=== PATIENT | male | born 1965 | race Caucasian/White ===

== ENCOUNTER 2018-06-21 16:45 | Inpatient (IN) | payer MEDICAID ==
[~2018-06-21] VITALS: Ht 188 cm; Wt 65.8 kg
--- NOTE | ~2018-06-21 | PN ---
PATIENT:LINDSAY JENKINS MEDICAL RECORD: [id number] LOCATION:[facility] ADMISSION DATE: 06/21/18 PROGRESS NOTE DATE OF SERVICE: 06/28/2018 SUBJECTIVE: This is a 52-year-old man who was admitted for possible fungal infection. The patient was treated with bronchodilators as well as antifungal medications. 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 There was no biopsy done. The patient was treated with significant improvement. The patient has, however, had increasing shortness of breath. This is a more frequent in cold weather as well as with dust and humidity. The patient was seen in the Emergency Room with severe shortness of breath, hypoxemia, which worsened on any activity such as walking. 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 The patient was seen as he had multiple minute circumscribed diffuse scattered in the lungs. There was no mass to the biopsy. The patient had a bronchoscopy with washing which was sent to the lab. So far, there is no organism noted. Potassium hydroxide smear was negative for fungus. Cytology is pending, but doubt whether this will show anything. 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 He also smoked until about 3 years ago, smoked about one to one and a half packs of cigarettes a day, started at age 17. His father also smoked heavily, but later on quit. There is no fever or chills. The patient's breathing has somewhat improved slightly. PHYSICAL EXAMINATION: GENERAL: Reveals a well-developed, well-nourished male, who is in no acute distress. VITAL SIGNS: Temperature 98.3, heart rate of 95, respiratory rate of 19, blood pressure 116/82. SHEENT: Unremarkable. HEENT: Pupils are equal and reactive. Nares are normal. Oral cavity is also normal. CHEST: Showed occasional wheeze. There are no crackles. CARDIAC: Shows no jugular venous distention. No murmur, or gallop. ABDOMEN: Benign. EXTREMITIES: No clubbing, cyanosis or edema. LABORATORY DATA: White count of 11.3, hemoglobin 12.4, platelet count 245. Chemistry is unremarkable. Creatinine is 0.8. MICROBIOLOGY: Gram stain is negative. Urine culture is also no growth. There is normal loree. ASSESSMENT AND PLAN: 1. 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 The patient was well advised not to return to his usual work with mobile homes. He will need to avoid the weather changes such as cold weather. Also, dust and cigarette smoke environments. He will need long-term treatment with bronchodilators as well as inhaled steroids or systemic steroids. 2. Doubt fungal infection in this patient at this time. The patient has been PROGRESS NOTE [id number] LINDSAY JENKINS treated fully with anti-TB medications in the past. There is only remote chance of reactivation. 3. Chronic obstructive pulmonary disease from smoking, with dust as well as second hand smoking from father. He also has a friend who smokes. PLAN: 1. We discontinued antifungals. 2. Taper Solu-Medrol and switch to oral prednisone. The patient will need a home nebulizer. Also, need inhaled steroids. 3. The patient can be followed in the pulmonary clinic. TIME SPENT: 40 minutes. Discussed with dialysis social worker about transportation and discharge planning. TRANSINT:[id number] Voice Confirmation ID: [id number] DOCUMENT ID: [id number] BOBBY THRASHER at 1019 CC: [id number] DICTATION DATE: 06/28/181815 DOOR PATCHER: 06/29/18 0058 ADM IN [facility] [address] [place] [address]
--- NOTE | ~2018-06-21 | PN ---
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 He has also had atypical mycobacterium. The patient presented to the Emergency Room with wheezing, shortness of breath especially on exertion with sputum production. The patient had a CT scan that showed cavitary lesion seen bilaterally in the lung bases and defects representing small aspergilloma. There is upper lobe confluent consolidation. The patient has been treated with antibiotics, bronchodilators and antifungal. A chest x-ray shows scarring patchy consolidations in bilateral lung apices, confluent consolidation in the left upper apex. This is suggestive of chronic infection. We will have to obtain fungal antigens as well as aspergillus IgG and then perhaps do bronchoscopy with washing, as there is no large mass to biopsy, that is probably scheduled for . PHYSICAL EXAMINATION: GENERAL: Reveals a middle-aged man who appears to be in no acute distress at rest. VITAL SIGNS: Temperature 98.8, heart rate 109, respiratory rate of 18, blood pressure 125/75. SHEENT: The patient is normocephalic. Pupils are equal and reactive. NECK: Supple. There is no adenopathy. CHEST: Shows some mild wheezes with cough. HEART: Shows no jugular venous distention, murmur or gallops. ABDOMEN: Benign without any tenderness. EXTREMITIES: Without clubbing, cyanosis or edema. LABORATORY DATA: Chemistry is remarkable for creatinine of 0.9, sodium 139. CBC showed white count of 20.1, hemoglobin 12.5 and platelet count is 304,000. ASSESSMENT: 1. Aspergillosis with aspergilloma. 2. Possible pneumonia. 3. Acute asthmatic bronchitis. The patient has been on antibiotics without any significant improvement. PLAN: 1. We will obtain aspergillus IgG and fungal antigen and antibodies. 2. We will plan for bronchoscopy for morning if the patient is not improved. 3. Continue antibiotics and continue steroid. TRANSINT:[id number] Voice Confirmation ID: [id number] DOCUMENT ID: [id number] PROGRESS NOTE [id number] LINDSAY JENKINS BOBBY THRASHER at 6182 CC: [id number] DICTATION DATE: 06/25/182102 PUBLIC WEIGHER: 06/26/18 0611 ADM IN [facility] [address] [facility]
--- NOTE | ~2018-06-21 | EC ---
PATIENT:LINDSAY JENKINS DATE OF SERVICE: 06/21/18 SEX: M MEDICAL RECORD: [id number] DATE OF : 63 LOCATION:D[facility] AGE OF PATIENT: 52 ADMISSION DATE: 06/21/18 REFERRING PHYSICIAN: INTERPRETING PHYSICIAN: SHIMA ARAUJO MD ECHOCARDIOGRAM REPORT ECHO CHARGES 4 ECHO COMPLETE Date: 06/23 CLINICAL DIAGNOSIS: CHF ECHOCARDIOGRAPHIC MEASUREMENTS (adult normal given) AC root (d.<3.7cm) 3.9 cm LV Septum d (<1.2 cm> 1.2 cm Valve Excursion 1.9 cm LV Septum (systole) 1.7 cm Left Atria (s.<4.0cm> 3.1 cm LVPW d(<1.2cm) 1.3 cm RV (d.<2.3cm) 4.2 cm LVPW (sytole) 1.8 cm LV diastole(<5.6CM) 3.9 cm MV E-F(>70mm/sec) cm LV systole 2.1 cm LVOT Diameter 1.9 cm MV exc.(>10mm) 1.9 cm Est.ejection fraction (50-75%) % DOPPLER: LVIT cm/sec A 56.0 cm/sec E 72.0 cm/sec LA cm/sec RVSP 44 mmHg LVOT 92 cm/sec AOP1/2T m/s Asc. Ao 132 cm/sec RVOT 75 cm/sec RA cm/sec PA 102 cm/sec AV Gradient Peak 6.95 mmHg AV Mean 4.0 mmHg AV Area 1.9 cm MV Gradient Peak 3.66 mmHg MV Mean 1.63 mmHg MV Area cm COMMENTS: Retail Coverage Merchandiser Lead: Hamida NINO Manager Oncology: 1 Dr. Araujo TAPE# PACS Pericardial Effusion N DATE OF SERVICE: 06/23/2018 PROCEDURE: Echocardiogram. FINDINGS: 1. Left ventricular chamber size is within normal limits. Left ventricular systolic function is normal. Overall ejection fraction estimated at 55%. 2. Left atrium, right atrium, and right ventricle chamber sizes are within normal limits. 3. Valvular structures: Aortic valve does have an echogenic thickening on the ECHOCARDIOGRAM REPORT [id number] LINDSAY JENKINS anterior leaflet. Cannot rule out the possibility of endocarditis. As well, the mitral valve has an echogenic process on it as well in the anterior leaflet. This cannot be ruled out as endocarditis either. 4. Doppler interrogation reveals no aortic insufficiency; however, there is mild to moderate mitral regurgitation, mild to moderate tricuspid regurgitation. Pulmonary systolic pressure is estimated at 44 mmHg. 5. No evidence of pericardial effusion or left ventricular thrombus. TRANSINT:[id number] Voice Confirmation ID: [id number] DOCUMENT ID: [id number] SHIMA ARAUJO MD at 1642 CC: [id number] DICTATION DATE: 06/24/18 1228 ACCOUNTANT BOOKKEEPER: 06/24/18 1330 ADM IN [place] [address] [place] [address]
--- NOTE | ~2018-06-21 | PN ---
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 The patient had had history of mycobacterium TB, has been treated with up to 4 drugs. He was also thought to have a fungus ball that was not biopsied, but resolved by itself. The patient has had severe shortness of breath, has quit his job because of inability to work with moderate height and it takes about 8 hours instead of 20 minutes for someone with the same job. He was admitted because of severe shortness of breath especially on exertion. He has some mild coughing with sputum production. There was no chest pain. The patient's serology so far has shown no fungus. He had a bronchoscopy and ANTONETTE smears were negative. There was a description of [address] scan that to me was not compatible with aspergilloma or aspergillosis. The patient had some mild improvement in breathing. There is no fever or chills. PHYSICAL EXAMINATION: GENERAL: Reveals a middle-aged gentleman who is in no acute distress. VITAL SIGNS: Temperature 98.1, heart rate of 97, respiratory rate of 18, blood pressure 114/77, saturation 97%. SHEENT: Unremarkable. There is no nasal redness or obstruction. Mouth is clear. Chest exam showed occasional cough, cough with wheeze, otherwise clear. There are no crackles. CARDIAC: Shows no jugular venous distention, murmur or gallops. ABDOMEN: Benign. EXTREMITIES: Shows no clubbing, cyanosis or edema. LABORATORY DATA: Showed white count 17.9, hemoglobin 12.6, platelet count is 256,000. Chemistry is normal. Potassium 3.6. Chest x-ray is compatible with chronic obstructive pulmonary disease, atypical pleural thickening is noted. ASSESSMENT: 1. Acute exacerbation of chronic asthma secondary to formaldehyde exposure toxicity. 2. Chronic obstructive pulmonary disease from smoking and formaldehyde exposure. 3. No evidence of a fungal infection. 4. Leukocytosis, probably secondary to steroids. PLAN: 1. Continue isolation. 2. Continue prednisone. 3. Continue on bronchodilators. 4. Deep venous thrombosis prophylaxis. 5. The patient may be discharged on Sunday as per PCP. He will need to follow up with pulmonary clinic if possible. TRANSINT:[id number] Voice Confirmation ID: [id number] DOCUMENT ID: [id number] PROGRESS NOTE [id number] LINDSAY JENKINS AUGUSTINE K at 0942 CC: [id number] DICTATION DATE: 06/29/18 1358 EMBEDDED FIRMWARE ENGINEER: 06/29/18 1625 ADM IN [place] [address] [place] [address]
--- NOTE | ~2018-06-21 | PN ---
PATIENT:LINDSAY JENKINS MEDICAL RECORD: [id number] LOCATION:D.[facility] ADMISSION DATE: 06/21/18 PROGRESS NOTE DATE OF SERVICE: 06/27/2018 SUBJECTIVE: This is a 52-year-old male who was admitted for increasing shortness of breath and coughing with wheezes. The patient's CT scan and chest x-ray showed multiple small lesions diffusely, felt to be aspergilloma. The patient has had a diagnosis of aspergilloma in the past without biopsy. He has been on antibiotics for antifungal and continued to have symptoms of cough and shortness of breath. Bronchoscopy was done this morning. The airways were normal. There is some mild redness. There is no edema. There were no lesions. Specimens were sent to the lab for cultures, chemistry and cytology. The patient has had an uneventful night. No fever or chills. No nausea or vomiting. PHYSICAL EXAMINATION: GENERAL: Reveals, middle-aged man who is in no acute distress, mildly sedated after bronchoscopy. VITAL SIGNS: Temperature 98.4, heart rate of 101, respiratory rate of 16, blood pressure 120/61. SHEENT: Unremarkable. NECK: Supple, no adenopathy. Trachea is midline. No masses. CHEST: Shows some mild crackles, otherwise good air flow bilaterally. There is no chest wall tenderness. HEART: Shows no jugular venous distention, murmur or gallop. ABDOMEN: Benign. EXTREMITIES: Show no clubbing, cyanosis or edema. LABORATORY DATA: White count of 17.7, hemoglobin 11.9, platelet count is 266. Chemistry is essentially normal. Chest x-ray is pending. ASSESSMENT: Acute asthmatic bronchitis, has possible fungal infection. The patient's fungal smear has been negative. Bronchoscopy results are pending. History of dust chemical exposure in the past. This may explain the patient's symptoms. PLAN: 1. Await bronchoscopy results. 2. Continue antibiotics. 3. Continue bronchodilators. 4. Deep venous thrombosis prophylaxis. TRANSINT:[id number] Voice Confirmation ID: [id number] DOCUMENT ID: [id number] PROGRESS NOTE [id number] LINDSAY JENKINS BOBBY THRASHER at 1238 CC: [id number] DICTATION DATE: 06/27/18 1045 AUTOMATION QA LEAD: 06/27/18 1200 ADM IN [address] [place] [address]
--- NOTE | ~2018-06-21 | PRO ---
PATIENT:LINDSAY JENKINS MEDICAL RECORD: [id number] : 63 LOCATION:D[facility] ADMISSION DATE: 06/21/18 PROCEDURE PERFORMED BY: BOBBY THRASHER DATE OF PROCEDURE: 06/27/2018 NAME OF PROCEDURE: 1. Flexible fiberoptic bronchoscopy. 2. Bronchial washings. No biopsies done. No brush was done. PREMEDICATIONS: 1. Versed 2 mg IV push. 2. Fentanyl 50 mcg IV push. 3. Pure ventilations include DuoNeb and 2% Xylocaine. INDICATION: Bilateral pneumonia, rule out aspergillomas. POSTOPERATIVE DIAGNOSES: Bilateral pneumonia, rule out aspergillomas. DESCRIPTION OF PROCEDURE: The patient was premedicated at bedside. Demerol 50 mg was given, Versed 2 mg and Ativan 50 mg. The patient was sedated and a flexible bronchoscopy was passed through the nose. The larynx was examined and the 2% Xylocaine instilled in the larynx. Trachea was entered. The right airway was examined including orifices. There is mild to moderate secretions. Saline was instilled into the distal airways and collected. The left airways was also examined including orifices. Saline was instilled into the distal airways and aspirated and collected. These were combined. The patient tolerated the procedure well and the bronchoscope was withdrawn. FINDINGS: Include normal true vocal cords, stephany and trachea. There was no endobronchial lesion. There was no mucosal edema. There was some mild redness bilaterally in the airways. Bronchoscopy washings were sent to lab for culture, cytology, and chemistries. TRANSINT:[id number] Voice Confirmation ID: [id number] DOCUMENT ID: [id number] BOBBY THRASHER at 1238 CC: [id number] DICTATION DATE: 06/27/18 1038 GOLF BALL COVER TREATER: 06/27/18 1155 ADM IN [facility] [address] [place] [address]
--- NOTE | ~2018-06-21 | PN ---
PATIENT:LINDSAY JENKINS MEDICAL RECORD: [id number] LOCATION:D.[facility] ADMISSION DATE: 06/21/18 PROGRESS NOTE DATE OF SERVICE: 06/24/2018 A 52-year-old man who has had a history of aspergillosis as well as an atypical mycobacteria in the past. The patient presented to the Emergency Room with increasing shortness of breath, coughing but still nonproductive. The patient has been severely weak. He also has some weight loss. The patient states that he looks better but still very short of breath especially on exertion and walking to the bathroom and back. He has had no fever or chills. The patient on the CT scan as mentioned there was a finding suggestive of a history of aspergillosis and cavitary lesions bilaterally and filling defects, but this can be small aspergillomas. Presence of bilateral nodular densities throughout the upper lobe but no confluent consolidation in the left apex. There is moderate coronary artery disease. The patient denies any fever or chills. PHYSICAL EXAMINATION: GENERAL: Physical exam reveals a middle-aged man who is in no acute distress. VITAL SIGNS: Temperature 99, heart rate 105, respiratory rate 20, blood pressure 118/80. SHEENT: Unremarkable. NECK: Supple. CHEST: Coarse crackles on coughing. There are no wheezes. HEART: Exam shows no jugular venous distention, murmur or gallops. ABDOMEN: Benign. No tenderness. There is no mass. There is no distention. EXTREMITIES: No clubbing, cyanosis or edema. LABORATORY DATA: White count of 8.2, hemoglobin 13.1, and platelet count is 338,000. Chemistry is remarkable for a creatinine of 0.9, sodium is 143. IgG, IgA, and IgE are Pending. Serology is also pending. ASSESSMENT: 1. Diffuse aspergillosis with multiple small aspergillomas. 2. Possible underlying pneumonia. 3. History of atypical Mycobacterium tuberculosis. 4. Acute exacerbation of chronic obstructive pulmonary disease. 5. Acute hypoxemic respiratory failure. 5. Hypertension. 6. Leukocytosis, improving, this would suggest underlying pneumonia, on antibiotics. PLAN: 1. Continue antibiotics. 2. Continue bronchodilators. 3. Continue systemic steroids. 4. Continue voriconazole antifungal. 5. Lovenox for DVT prophylaxis. TRANSINT:[id number] Voice Confirmation ID: [id number] DOCUMENT ID: [id number] PROGRESS NOTE [id number] LINDSAY JENKINS AUGUSTINE K at 1538 CC: [id number] DICTATION DATE: 06/24/182129 MILLER APPRENTICE: 06/25/18 0344 ADM IN [facility] [address] [place] [id number]
--- NOTE | ~2018-06-21 | PN ---
PATIENT:LINDSAY JENKINS MEDICAL RECORD: [id number] LOCATION:D.[facility] ADMISSION DATE: 06/21/18 PROGRESS NOTE DATE OF SERVICE: 06/26/2018 SUBJECTIVE: This is a middle-aged man who is in no acute distress. The patient presented to the Emergency Room with severe shortness of breath, wheezes, and severe exertional dyspnea. He has had a history of atypical mycobacteria as well as possible Aspergillosis. No biopsies were done. The patient's chest x-ray and CT scan showed multiple small nodules that was felt to be aspergilloma. The patient was admitted and has been on antifungal medications as well as antibacterial medication. He has also had systemic steroid. The patient remains the same. Sputum cultures with blood cultures have been negative. The patient denies any fever or chills. PHYSICAL EXAMINATION: GENERAL: Reveals a well-developed, well-nourished man, who is in no acute distress. VITAL SIGNS: Temperature 97.9, heart rate of 109, respiratory rate of 18, blood pressure 117/78. SHEENT: Unremarkable. HEENT: Normocephalic. Pupils are equal and reactive. NECK: Supple. There is no adenopathy. There is no thyromegaly. Trachea is midline. CHEST: Showed moderate wheeze, especially on coughing or respiratory inspiration. No chest wall tenderness. There is no accessory muscle use. CARDIAC: Shows no jugular venous distention, murmur or gallops. ABDOMEN: Benign. There is no tenderness. There are no masses. There is no distention. EXTREMITIES: Shows no clubbing, cyanosis or edema. LABORATORY DATA: CBC showed white count of 10.6, hemoglobin 12.2 and platelet count 261,000. Chemistry essentially normal. Immunology showed positive IgA or high IgA. Serology is pending. Mycobacterial smear is negative. Fungal stain, no fungus observed. ASSESSMENT: 1. Presumed aspergilloma infection. No smear showing fungus or mycobacteria. The patient will need bronchoscopy in the morning for diagnosis of sputum as well as a possible biopsy if there is something observed in endobronchial. 2. Acute asthmatic bronchitis. This is not improving possibly because of the distal bronchial obstruction. No diagnosis is made. The patient may need to have an open lung biopsy. PLAN: 1. Bronchoscopy in the morning for washing cultures and cytology. 2. Continue current treatment. 3. N.p.o. post-midnight. I have discussed with the patient the procedure and also need for n.p.o. at midnight. All questions were answered. TRANSINT:[id number] Voice Confirmation ID: [id number] DOCUMENT ID: [id number] PROGRESS NOTE [id number] LINDSAY JENKINS AUGUSTINE K at 1046 CC: [id number] DICTATION DATE: 06/26/181916 WAREHOUSE HAND: 06/27/18 0000 ADM IN [facility] [address] [place] [id number]
--- NOTE | ~2018-06-21 | PN ---
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 For the last few years, he has been having trouble breathing, what takes him about 2 hours, takes him about 8 hours to do and has had severe shortness of breath especially on exertion. He has had mycobacterial tuberculosis and has been treated with about 3-4 antibiotics per year. It was also told that he has some aspergilloma but no biopsies were done. The patient had bronchoscopy of the lungs but no edema. Cytology is pending. The patient had a CT scan that showed multiple scattered minute cavitary lesions all felt to be aspergilloma. The patient was treated with antifungal medications as well as antibacterial medications, Solu-Medrol as well as bronchodilators. He has had severe shortness of breath especially with exertion to the bathroom. Isolation was discontinued. The patient has been unable to walk in the halls, although at some point he sits down to get his breath. Overall, he is doing better. PHYSICAL EXAMINATION: GENERAL: Physical exam reveals a middle-aged man, appears in no acute distress. VITAL SIGNS: Temperature of 97.9, heart rate of 101, respiratory rate of 18, blood pressure 123/66, pulse ox 97%. SHEENT: Unremarkable. NECK: Supple. There is neuropathy. Trachea is midline. There is no thyromegaly. LUNGS: Clear. There is no wheeze on coughing. HEART: Exam shows no jugular venous distention, no murmur or gallop. ABDOMEN: Benign. EXTREMITIES: There is no clubbing, cyanosis or edema. No abdominal tenderness. LABORATORY DATA: Lab exam showed CBC, white count 19.4, hemoglobin 13, platelet count is 265. Chemistry is remarkable for potassium 3.9, sodium 132, bicarbonate is 28, and creatinine 0.7. Chest x-ray from yesterday showed scarring and retraction in the upper lobes bilaterally. There is hyperinflation of the lungs. ASSESSMENT: 1. Chronic asthma with status asthmaticus. 2. History of mycobacterial tuberculosis, treated. 3. Formaldehyde toxicity with damage to the lungs. PLAN: 1. Continue bronchodilators. Will probably need a nebulizer at home as well as aerosolized steroids and bronchodilators. We will need to follow up in pulmonary clinic for PFTs and additional medications. 2. Continue DVT prophylaxis. 3. Physical therapy for ambulation. PROGRESS NOTE [id number] LINDSAY JENKINS 4. Discharge planning for consultation. TRANSINT:[id number] Voice Confirmation ID: [id number] DOCUMENT ID: [id number] BOBBY THRASHER CC: [id number] DICTATION DATE: 06/30/181714 LOGGING CREW FOREMAN: 07/01/18 0048 ADM IN [facility] [address] [place] [address]
[2018-06-21] MEDS ORDERED: VFEND200 MG PO (23:07)
[2018-06-21] MEDS ORDERED: MULTIPLE VITAMI1 TA1 PO (23:08)
[2018-06-21 23:09] VITALS: BP 133/91; BMI 18.6
[2018-06-21 23:59] LABS: BASOPHILS 0.3 % (0-2); HEMATOCRIT 38.2 % (42.0-54.0); HEMOGLOBIN 12.8 g/dL (13.5-17.5); IMMATURE GRANULOCYTES 0.2 % (0-5); LYMPHOCYTES 18.2 % (15-50); MCH 30.5 pg (26.0-34.0); MCHC 33.5 g/dL (31.0-37.0); MEAN PLATELET VOLUME 9.2 fL (7.4-10.4); NEUTROPHILS 68.3 % (40-80); PLATELET COUNT 314 10x3/uL (130-400); RDW 17.8 % (11.5-14.5); WBC 9.6 10x3/uL (4.8-10.8)
[2018-06-22 00:01] VITALS: BP 133/91
[2018-06-22 00:12] LABS: ALBUMIN 2.4 g/dL (3.4-5.0); ALKALINE PHOSPHATASE 159 U/L (46-116); ALT (SGPT) 6 U/L (10-68); BILIRUBIN - TOTAL 0.32 mg/dL (0.2-1.3); CALC OSMOLALITY 272 mosm/kg (275-300); CALCIUM 8.8 mg/dL (8.5-10.1); CHLORIDE - SERUM 102 mmol/L (98-107); CREATININE - SERUM 0.9 mg/dL (0.6-1.3); GLUCOSE 100 mg/dL (74-106); POTASSIUM - SERUM 4.2 mmol/L (3.5-5.1); PROTEIN - SERUM 7.3 g/dL (6.4-8.2); SODIUM 138 mmol/L (136-145); UREA NITROGEN 5 mg/dL (7-18); eGFR NON AFRICAN AMERICAN > 90 mL/min (90-120)
[2018-06-22 04:16] VITALS: BP 135/88
[2018-06-22 10:32] VITALS: BP 107/72
[2018-06-22 14:33] VITALS: BP 178/89
[2018-06-22 15:37] LABS: BASOPHILS 0.2 % (0-2); EOSINOPHILS 1.8 % (0-7); HEMATOCRIT 43.6 % (42.0-54.0); HEMOGLOBIN 14.9 g/dL (13.5-17.5); IMMATURE GRANULOCYTES 0.2 % (0-5); LYMPHOCYTES 18.2 % (15-50); MCH 30.6 pg (26.0-34.0); MCHC 34.2 g/dL (31.0-37.0); MCV 89.5 fL (80.0-100.0); MEAN PLATELET VOLUME 9.6 fL (7.4-10.4); MONOCYTES 10.1 % (2-11); NEUTROPHILS 69.5 % (40-80); PLATELET COUNT 383 10x3/uL (130-400); RBC 4.87 10x6/uL (4.20-6.10); RDW 17.6 % (11.5-14.5); WBC 12.9 10x3/uL (4.8-10.8)
[2018-06-22 15:47] LABS: APTT 29.5 SECONDS (22.8-39.4); INR 1.08 (0.85-1.17); PROTIME 13.6 SECONDS (11.6-15.0)
[2018-06-22 15:50] LABS: % SATURATION 19 % (15-55); IRON 44 ug/dl (35-150); TOTAL IRON BIND CAPACITY 226 ug/dl (260-445); UNSAT IRON BIND CAPACITY 182 ug/dl (150-375)
[2018-06-22 16:09] LABS: CALC OSMOLALITY 273 mosm/kg (275-300); CALCIUM 9.1 mg/dL (8.5-10.1); CARBON DIOXIDE 27.9 mmol/L (21.0-32.0); CHLORIDE - SERUM 102 mmol/L (98-107); FERRITIN 83 ng/mL (3-244); GLUCOSE 98 mg/dL (74-106); MAGNESIUM - SERUM 1.8 mg/dL (1.8-2.4); POTASSIUM - SERUM 4.8 mmol/L (3.5-5.1); PRO BNP 984 pg/mL (0-125); SODIUM 138 mmol/L (136-145); UREA NITROGEN 6 mg/dL (7-18); eGFR NON AFRICAN AMERICAN 83 mL/min (90-120)
[2018-06-22 19:11] VITALS: BP 124/84
[2018-06-22 20:16] VITALS: BP 102/83
[2018-06-22 22:39] LABS: APPEARANCE CLEAR (CLEAR); COLOR YELLOW (YELLOW); NITRITE NEGATIVE (NEGATIVE); PROTEIN NEGATIVE (NEGATIVE)
[2018-06-22 22:40] LABS: BILIRUBIN NEGATIVE (NEGATIVE); GLUCOSE NEGATIVE (NEGATIVE); KETONE NEGATIVE (NEGATIVE); UROBILINOGEN NORMAL (NORMAL)
[2018-06-23 04:30] VITALS: BP 96/77
[2018-06-23 06:38] LABS: BASOPHILS 0.2 % (0-2); EOSINOPHILS 1.4 % (0-7); HEMATOCRIT 42.3 % (42.0-54.0); HEMOGLOBIN 14.4 g/dL (13.5-17.5); IMMATURE GRANULOCYTES 0.2 % (0-5); LYMPHOCYTES 14.8 % (15-50); MCH 30.5 pg (26.0-34.0); MCV 89.6 fL (80.0-100.0); MEAN PLATELET VOLUME 9.6 fL (7.4-10.4); MONOCYTES 8.7 % (2-11); NEUTROPHILS 74.7 % (40-80); PLATELET COUNT 357 10x3/uL (130-400); RBC 4.72 10x6/uL (4.20-6.10); RDW 17.4 % (11.5-14.5); WBC 10.9 10x3/uL (4.8-10.8)
[2018-06-23 07:31] LABS: CALC OSMOLALITY 271 mosm/kg (275-300); CALCIUM 8.8 mg/dL (8.5-10.1); CARBON DIOXIDE 26.7 mmol/L (21.0-32.0); CHLORIDE - SERUM 101 mmol/L (98-107); CREATININE - SERUM 0.9 mg/dL (0.6-1.3); GLUCOSE 98 mg/dL (74-106); POTASSIUM - SERUM 4.5 mmol/L (3.5-5.1); SODIUM 137 mmol/L (136-145); UREA NITROGEN 6 mg/dL (7-18); eGFR NON AFRICAN AMERICAN > 90 mL/min (90-120)
[2018-06-23 09:37] VITALS: BP 105/69
[2018-06-23 14:35] VITALS: BP 112/74
[2018-06-23 16:50] VITALS: BP 114/74
[2018-06-23 20:35] VITALS: BP 112/81
[2018-06-24 01:31] VITALS: BP 124/84
[2018-06-24 04:18] VITALS: BP 114/75
[2018-06-24 06:58] LABS: C-REACTIVE PROTEIN 2.3 mg/dL (0.0-0.9); CALC OSMOLALITY 283 mosm/kg (275-300); CALCIUM 8.5 mg/dL (8.5-10.1); CARBON DIOXIDE 23.1 mmol/L (21.0-32.0); CHLORIDE - SERUM 105 mmol/L (98-107); CREATININE - SERUM 0.9 mg/dL (0.6-1.3); GLUCOSE 141 mg/dL (74-106); POTASSIUM - SERUM 4.2 mmol/L (3.5-5.1); SODIUM 143 mmol/L (136-145); UREA NITROGEN 5 mg/dL (7-18); eGFR NON AFRICAN AMERICAN > 90 mL/min (90-120)
[2018-06-24 07:14] LABS: BASOPHILS 0 % (0-2); EOSINOPHILS 0 % (0-7); HEMATOCRIT 39.1 % (42.0-54.0); HEMOGLOBIN 13.1 g/dL (13.5-17.5); IMMATURE GRANULOCYTES 0.2 % (0-5); LYMPHOCYTES 6.9 % (15-50); MCHC 33.5 g/dL (31.0-37.0); MCV 89.7 fL (80.0-100.0); MEAN PLATELET VOLUME 9.9 fL (7.4-10.4); MONOCYTES 0.6 % (2-11); NEUTROPHILS 92.3 % (40-80); PLATELET COUNT 330 10x3/uL (130-400); RBC 4.36 10x6/uL (4.20-6.10); RDW 17.6 % (11.5-14.5); WBC 8.2 10x3/uL (4.8-10.8)
[2018-06-24 08:43] VITALS: BP 172/78
[2018-06-24 13:04] VITALS: BP 121/80
[2018-06-24 14:21] VITALS: Ht 188 cm; Wt 65.8 kg
[2018-06-24 16:24] VITALS: BP 118/80
[2018-06-24 21:16] VITALS: BP 125/75
[2018-06-25 06:35] LABS: HEMATOCRIT 37.4 % (42.0-54.0); HEMOGLOBIN 12.5 g/dL (13.5-17.5); MCHC 33.4 g/dL (31.0-37.0); MCV 89.7 fL (80.0-100.0); MEAN PLATELET VOLUME 9.9 fL (7.4-10.4); PLATELET COUNT 304 10x3/uL (130-400); RBC 4.17 10x6/uL (4.20-6.10); RDW 17.8 % (11.5-14.5); WBC 20.1 10x3/uL (4.8-10.8)
[2018-06-25 06:42] LABS: CALC OSMOLALITY 275 mosm/kg (275-300); CALCIUM 8.6 mg/dL (8.5-10.1); CARBON DIOXIDE 26.7 mmol/L (21.0-32.0); CHLORIDE - SERUM 107 mmol/L (98-107); CREATININE - SERUM 0.9 mg/dL (0.6-1.3); GLUCOSE 99 mg/dL (74-106); POTASSIUM - SERUM 4.6 mmol/L (3.5-5.1); SODIUM 139 mmol/L (136-145); eGFR NON AFRICAN AMERICAN > 90 mL/min (90-120)
[2018-06-25 06:46] LABS: UREA NITROGEN 8 mg/dL (7-18)
[2018-06-25 07:32] LABS: IMMUNOGLOBULIN A 625 mg/dL (90-386); IMMUNOGLOBULIN G 1355 mg/dL (700-1600)
[2018-06-25 07:52] LABS: LYMPHOCYTES 10 % (15-50); MONOCYTES 12 % (2-11); NEUTROPHILS 78 % (40-80); PLATELET ESTIMATE NORMAL
[2018-06-25 20:08] LABS: ACID FAST SMEAR Negative (()); AFB SPECIMEN PROCESSING Concentration (())
[2018-06-25 21:06] VITALS: BP 141/82
[2018-06-26 04:56] VITALS: BP 124/87
[2018-06-26 06:38] LABS: BASOPHILS 0 % (0-2); EOSINOPHILS 0 % (0-7); HEMATOCRIT 37.2 % (42.0-54.0); HEMOGLOBIN 12.2 g/dL (13.5-17.5); IMMATURE GRANULOCYTES 0.3 % (0-5); LYMPHOCYTES 5.5 % (15-50); MCH 29.8 pg (26.0-34.0); MCHC 32.8 g/dL (31.0-37.0); MEAN PLATELET VOLUME 10.1 fL (7.4-10.4); MONOCYTES 0.8 % (2-11); NEUTROPHILS 93.4 % (40-80); PLATELET COUNT 261 10x3/uL (130-400); RBC 4.09 10x6/uL (4.20-6.10); RDW 17.4 % (11.5-14.5)
[2018-06-26 06:48] LABS: WBC 10.6 10x3/uL (4.8-10.8)
[2018-06-26 07:24] LABS: CALC OSMOLALITY 274 mosm/kg (275-300); CALCIUM 8.3 mg/dL (8.5-10.1); CARBON DIOXIDE 28.1 mmol/L (21.0-32.0); CHLORIDE - SERUM 103 mmol/L (98-107); CREATININE - SERUM 0.8 mg/dL (0.6-1.3); GLUCOSE 125 mg/dL (74-106); POTASSIUM - SERUM 4.7 mmol/L (3.5-5.1); SODIUM 138 mmol/L (136-145); UREA NITROGEN 7 mg/dL (7-18); eGFR NON AFRICAN AMERICAN > 90 mL/min (90-120)
[2018-06-26 09:00] VITALS: BP 105/78
[2018-06-26 11:45] VITALS: BP 114/74
[2018-06-26 13:19] LABS: FUNGUS STAIN Final report (())
[2018-06-26 15:46] VITALS: BP 117/78
[2018-06-26 20:00] VITALS: BP 123/77
[2018-06-26 20:48] LABS: BASOPHILS 0 % (0-2); EOSINOPHILS 0 % (0-7); HEMATOCRIT 36.8 % (42.0-54.0); IMMATURE GRANULOCYTES 0.4 % (0-5); LYMPHOCYTES 6.6 % (15-50); MCH 29.9 pg (26.0-34.0); MCHC 32.6 g/dL (31.0-37.0); MCV 91.5 fL (80.0-100.0); PLATELET COUNT 268 10x3/uL (130-400); RBC 4.02 10x6/uL (4.20-6.10); RDW 17.2 % (11.5-14.5)
[2018-06-26 21:01] LABS: WBC 14.9 10x3/uL (4.8-10.8)
[2018-06-26 21:14] LABS: APTT 25.8 SECONDS (22.8-39.4)
[2018-06-26 21:15] LABS: INR 1.07 (0.85-1.17); PROTIME 13.5 SECONDS (11.6-15.0)
[2018-06-27] VITALS: BP 115/77
[2018-06-27 04:00] VITALS: BP 120/61
[2018-06-27 04:32] LABS: BASOPHILS 0.1 % (0-2); EOSINOPHILS 0 % (0-7); HEMATOCRIT 36.1 % (42.0-54.0); HEMOGLOBIN 11.9 g/dL (13.5-17.5); IMMATURE GRANULOCYTES 0.4 % (0-5); LYMPHOCYTES 9.4 % (15-50); MCH 29.6 pg (26.0-34.0); MCV 89.8 fL (80.0-100.0); MEAN PLATELET VOLUME 10.3 fL (7.4-10.4); MONOCYTES 8.8 % (2-11); NEUTROPHILS 81.3 % (40-80); PLATELET COUNT 266 10x3/uL (130-400); RBC 4.02 10x6/uL (4.20-6.10); WBC 17.7 10x3/uL (4.8-10.8)
[2018-06-27 05:03] LABS: CALC OSMOLALITY 275 mosm/kg (275-300); CALCIUM 8.5 mg/dL (8.5-10.1); CARBON DIOXIDE 28.7 mmol/L (21.0-32.0); CHLORIDE - SERUM 103 mmol/L (98-107); CREATININE - SERUM 0.7 mg/dL (0.6-1.3); GLUCOSE 110 mg/dL (74-106); SODIUM 138 mmol/L (136-145); UREA NITROGEN 11 mg/dL (7-18); VANCOMYCIN - TROUGH 21.7 ug/mL (10.0-20.0); eGFR NON AFRICAN AMERICAN > 90 mL/min (90-120)
[2018-06-27 11:20] LABS: IMMUNOGLOBULIN E 199 IU/mL (0-100)
[2018-06-27 12:26] VITALS: BP 121/84
[2018-06-27 20:00] VITALS: BP 117/83
[2018-06-27 22:11] LABS: ASPERGILLUS - FLAVUS Negative (Neg:<1:1); ASPERGILLUS - FUMIGATUS Negative (Neg:<1:1); ASPERGILLUS - NIGER Negative (Neg:<1:1)
[2018-06-28] VITALS: BP 120/79
[2018-06-28 04:00] VITALS: BP 113/81
[2018-06-28 06:40] LABS: BASOPHILS 0 % (0-2); EOSINOPHILS 0 % (0-7); HEMATOCRIT 37.9 % (42.0-54.0); HEMOGLOBIN 12.4 g/dL (13.5-17.5); IMMATURE GRANULOCYTES 0.4 % (0-5); LYMPHOCYTES 6.3 % (15-50); MCH 29.5 pg (26.0-34.0); MCHC 32.7 g/dL (31.0-37.0); MEAN PLATELET VOLUME 10.3 fL (7.4-10.4); MONOCYTES 3.5 % (2-11); NEUTROPHILS 89.8 % (40-80); PLATELET COUNT 245 10x3/uL (130-400); RBC 4.21 10x6/uL (4.20-6.10); RDW 16.8 % (11.5-14.5)
[2018-06-28 06:49] LABS: WBC 11.5 10x3/uL (4.8-10.8)
[2018-06-28 06:53] LABS: ALBUMIN 2.5 g/dL (3.4-5.0); ALKALINE PHOSPHATASE 94 U/L (46-116); ALT (SGPT) 19 U/L (10-68); BILIRUBIN - TOTAL 0.34 mg/dL (0.2-1.3); CALC OSMOLALITY 271 mosm/kg (275-300); CALCIUM 8.5 mg/dL (8.5-10.1); CARBON DIOXIDE 30.6 mmol/L (21.0-32.0); CHLORIDE - SERUM 100 mmol/L (98-107); CREATININE - SERUM 0.8 mg/dL (0.6-1.3); GLUCOSE 119 mg/dL (74-106); PROTEIN - SERUM 6.7 g/dL (6.4-8.2); SODIUM 136 mmol/L (136-145); UREA NITROGEN 11 mg/dL (7-18); eGFR NON AFRICAN AMERICAN > 90 mL/min (90-120)
[2018-06-28 06:54] LABS: POTASSIUM - SERUM 4.8 mmol/L (3.5-5.1)
[2018-06-28 09:03] VITALS: BP 122/84
[2018-06-28 12:55] VITALS: BP 116/82
[2018-06-28 19:11] LABS: ACID FAST SMEAR Negative (()); AFB SPECIMEN PROCESSING Concentration (())
[2018-06-28 20:00] VITALS: BP 120/78
[2018-06-29 04:00] VITALS: BP 130/79
[2018-06-29 06:51] VITALS: BP 116/78
[2018-06-29 07:05] LABS: ALBUMIN 2.6 g/dL (3.4-5.0); ALKALINE PHOSPHATASE 107 U/L (46-116); ALT (SGPT) 23 U/L (10-68); BILIRUBIN - TOTAL 0.26 mg/dL (0.2-1.3); CALC OSMOLALITY 271 mosm/kg (275-300); CALCIUM 8.4 mg/dL (8.5-10.1); CARBON DIOXIDE 27.6 mmol/L (21.0-32.0); CHLORIDE - SERUM 102 mmol/L (98-107); CREATININE - SERUM 0.7 mg/dL (0.6-1.3); GLUCOSE 110 mg/dL (74-106); POTASSIUM - SERUM 3.6 mmol/L (3.5-5.1); PROTEIN - SERUM 6.6 g/dL (6.4-8.2); SODIUM 136 mmol/L (136-145); UREA NITROGEN 11 mg/dL (7-18); eGFR NON AFRICAN AMERICAN > 90 mL/min (90-120)
[2018-06-29 07:31] LABS: BASOPHILS 0.1 % (0-2); EOSINOPHILS 0 % (0-7); HEMOGLOBIN 12.6 g/dL (13.5-17.5); IMMATURE GRANULOCYTES 0.4 % (0-5); LYMPHOCYTES 7.3 % (15-50); MCH 29.6 pg (26.0-34.0); MCHC 33.2 g/dL (31.0-37.0); MCV 89.4 fL (80.0-100.0); MEAN PLATELET VOLUME 10.5 fL (7.4-10.4); MONOCYTES 11.2 % (2-11); PLATELET COUNT 256 10x3/uL (130-400); RBC 4.25 10x6/uL (4.20-6.10); RDW 16.5 % (11.5-14.5)
[2018-06-29 07:43] LABS: WBC 17.9 10x3/uL (4.8-10.8)
[2018-06-29 12:49] VITALS: BP 114/77
[2018-06-29 17:08] LABS: ASPERGILLUS - FLAVUS Negative (Neg:<1:1); ASPERGILLUS - FUMIGATUS Negative (Neg:<1:1); ASPERGILLUS - NIGER Negative (Neg:<1:1)
[2018-06-29 20:00] VITALS: BP 120/71
[2018-06-30 04:00] VITALS: BP 114/82
[2018-06-30 06:49] LABS: BASOPHILS 0.1 % (0-2); EOSINOPHILS 0.2 % (0-7); IMMATURE GRANULOCYTES 1.4 % (0-5); LYMPHOCYTES 9.5 % (15-50); MCH 29.7 pg (26.0-34.0); MCHC 33.3 g/dL (31.0-37.0); MCV 89.2 fL (80.0-100.0); MEAN PLATELET VOLUME 10.3 fL (7.4-10.4); MONOCYTES 9.3 % (2-11); NEUTROPHILS 79.5 % (40-80); PLATELET COUNT 265 10x3/uL (130-400); RBC 4.37 10x6/uL (4.20-6.10); RDW 16.2 % (11.5-14.5); WBC 19.4 10x3/uL (4.8-10.8)
[2018-06-30 07:14] LABS: ALBUMIN 2.9 g/dL (3.4-5.0); ALKALINE PHOSPHATASE 110 U/L (46-116); ALT (SGPT) 25 U/L (10-68); CALC OSMOLALITY 264 mosm/kg (275-300); CALCIUM 8.7 mg/dL (8.5-10.1); CARBON DIOXIDE 28.1 mmol/L (21.0-32.0); CHLORIDE - SERUM 97 mmol/L (98-107); CREATININE - SERUM 0.7 mg/dL (0.6-1.3); GLUCOSE 95 mg/dL (74-106); POTASSIUM - SERUM 3.9 mmol/L (3.5-5.1); PROTEIN - SERUM 7.2 g/dL (6.4-8.2); SODIUM 132 mmol/L (136-145); UREA NITROGEN 12 mg/dL (7-18); eGFR NON AFRICAN AMERICAN > 90 mL/min (90-120)
[2018-06-30 11:28] VITALS: BP 111/74
[2018-06-30 15:43] VITALS: BP 123/66
[2018-06-30 21:04] VITALS: BP 118/75
[2018-07-01 04:00] VITALS: BP 118/81
[2018-07-01 06:00] LABS: BASOPHILS 0.1 % (0-2); EOSINOPHILS 0.2 % (0-7); HEMATOCRIT 35.8 % (42.0-54.0); HEMOGLOBIN 11.9 g/dL (13.5-17.5); IMMATURE GRANULOCYTES 1.3 % (0-5); LYMPHOCYTES 9.8 % (15-50); MCH 29.4 pg (26.0-34.0); MCHC 33.2 g/dL (31.0-37.0); MCV 88.4 fL (80.0-100.0); MEAN PLATELET VOLUME 10.3 fL (7.4-10.4); MONOCYTES 9.1 % (2-11); NEUTROPHILS 79.5 % (40-80); RBC 4.05 10x6/uL (4.20-6.10); RDW 16.2 % (11.5-14.5); WBC 16.3 10x3/uL (4.8-10.8)
[2018-07-01 06:19] LABS: PLATELET COUNT 211 10x3/uL (130-400)
[2018-07-01 06:39] LABS: ALBUMIN 2.5 g/dL (3.4-5.0); ALKALINE PHOSPHATASE 118 U/L (46-116); BILIRUBIN - TOTAL 0.26 mg/dL (0.2-1.3); CALC OSMOLALITY 273 mosm/kg (275-300); CALCIUM 8.5 mg/dL (8.5-10.1); CARBON DIOXIDE 28.8 mmol/L (21.0-32.0); CHLORIDE - SERUM 103 mmol/L (98-107); CREATININE - SERUM 0.6 mg/dL (0.6-1.3); GLUCOSE 85 mg/dL (74-106); PROTEIN - SERUM 6.2 g/dL (6.4-8.2); SODIUM 138 mmol/L (136-145); UREA NITROGEN 10 mg/dL (7-18); eGFR NON AFRICAN AMERICAN > 90 mL/min (90-120)
[2018-07-01 06:40] LABS: ALT (SGPT) 32 U/L (10-68)
[2018-07-01 06:56] LABS: DIGOXIN < 0.06 ng/mL (0.90-2.00)
[2018-07-01 08:57] VITALS: BP 112/78
[2018-07-01 11:16] LABS: FUNGUS STAIN Final report (())
[2018-07-01 13:24] VITALS: BP 117/80
[2018-07-01 20:00] VITALS: BP 122/87
[2018-07-02 06:43] LABS: BASOPHILS 0.1 % (0-2); EOSINOPHILS 1.2 % (0-7); HEMATOCRIT 37.1 % (42.0-54.0); HEMOGLOBIN 12.4 g/dL (13.5-17.5); IMMATURE GRANULOCYTES 1.6 % (0-5); LYMPHOCYTES 13.3 % (15-50); MCH 29.5 pg (26.0-34.0); MCHC 33.4 g/dL (31.0-37.0); MCV 88.3 fL (80.0-100.0); MEAN PLATELET VOLUME 10.9 fL (7.4-10.4); MONOCYTES 11.3 % (2-11); NEUTROPHILS 72.5 % (40-80); PLATELET COUNT 241 10x3/uL (130-400); RDW 16.3 % (11.5-14.5); WBC 15.2 10x3/uL (4.8-10.8)
[2018-07-02 07:07] LABS: ALBUMIN 2.7 g/dL (3.4-5.0); ALKALINE PHOSPHATASE 124 U/L (46-116); ALT (SGPT) 32 U/L (10-68); BILIRUBIN - TOTAL 0.25 mg/dL (0.2-1.3); CALC OSMOLALITY 269 mosm/kg (275-300); CALCIUM 8.6 mg/dL (8.5-10.1); CARBON DIOXIDE 28.4 mmol/L (21.0-32.0); CHLORIDE - SERUM 101 mmol/L (98-107); CREATININE - SERUM 0.7 mg/dL (0.6-1.3); GLUCOSE 81 mg/dL (74-106); POTASSIUM - SERUM 3.4 mmol/L (3.5-5.1); PROTEIN - SERUM 6.4 g/dL (6.4-8.2); SODIUM 136 mmol/L (136-145); UREA NITROGEN 11 mg/dL (7-18); eGFR NON AFRICAN AMERICAN > 90 mL/min (90-120)
[2018-07-02] MEDS ORDERED: BREO ELLIPTA 21 EACH INH (08:39)
[2018-07-02] MEDS ORDERED: SINGULAIR10 MG PO (08:40)
[2018-07-02] MEDS ORDERED: IPRAT-ALBUT 0.5-3 ML UPD (08:40)
[2018-07-02] MEDS ORDERED: PULMICORT0.5 MG/21 UPD (08:41)
[2018-07-02] MEDS ORDERED: PREDNISONE20 MG PO (08:41)
[2018-07-02] MEDS ORDERED: PROTONIX40 MG PO (08:41)
[2018-07-02 09:10] VITALS: BP 113/76
[2018-07-02 13:39] VITALS: BP 115/86
[2018-07-22 07:10] LABS: FUNGUS MYCOLOGY CULTURE Final report (())
[2018-07-25 11:22] LABS: FUNGUS MYCOLOGY CULTURE Final report (())
== END 2018-07-02 14:19 | disposition home or self-care (01) | DRG 867 ==
LOC: D.M2 16:45 → D.MS 22:30
PROVIDERS: Family Medicine; Internal Medicine; Internal Medicine Nephrology; Internal Medicine Pulmonary Disease
PROC: 0B938ZZ Drainage of Right Main Bronchus, Via Natural or Artificial Opening Endoscopic (ICD-10-PCS; 2018-06-27)
PROC: 0B978ZZ Drainage of Left Main Bronchus, Via Natural or Artificial Opening Endoscopic (ICD-10-PCS; principal; 2018-06-27 10:37)
DX: B44.1 Other pulmonary aspergillosis (principal); J96.21 Acute and chronic respiratory failure with hypoxia; J44.1 Chronic obstructive pulmonary disease with (acute) exacerbation; E46 Unspecified protein-calorie malnutrition; Z68.1 Body mass index [BMI] 19.9 or less, adult; G40.909 Epilepsy, unspecified, not intractable, without status epilepticus; I10 Essential (primary) hypertension; R91.8 Other nonspecific abnormal finding of lung field; D64.9 Anemia, unspecified; Z86.11 Personal history of tuberculosis

== ENCOUNTER → 2018-08-07 13:06 | Outpatient (CLI) | payer MEDICAID ==
[2018-06-24 14:21] VITALS: BMI 18.6
[~2018-08-07 13:06] MED LIST: BREO ELLIPTA 21 EACH INH; IPRAT-ALBUT 0.5-3 ML UPD; MULTIPLE VITAMI1 TA1 PO; PREDNISONE20 MG PO; PROTONIX40 MG PO; PULMICORT0.5 MG/21 UPD; SINGULAIR10 MG PO; VFEND200 MG PO
[2018-08-09 14:23] LABS: FUNGUS STAIN Final report (())
[2018-09-04 08:18] LABS: FUNGUS MYCOLOGY CULTURE Final report (())
== END | disposition home or self-care (01) ==
LOC: D.LABREF 13:06
PROVIDERS: Nurse Practitioner Acute Care
DX: Z86.11 Personal history of tuberculosis (principal)

== ENCOUNTER 2018-09-22 09:02 | Inpatient (IN) | payer MEDICAID ==
[2018-09-22] VITALS (32 sets, daily range): BP systolic 40–103; BP diastolic 23–79; BMI 20.7
[~2018-09-22] VITALS: Ht 188 cm; Wt 93.7 kg
--- NOTE | ~2018-09-22 | MORECARE ---
CASE MANAGEMENT DISCHARGE SUMMARY PATIENT: LINDSAY JENKINS UNIT: [id number] ADM DATE: 09/22/18 AGE: 52 : 63 SEX: M ROOM/BED: D.2302 AUTHOR: ALISSA WYNNE PHYSICIAN: REFERRING PHYSICIAN: KELSY STROUD MD DATE OF SERVICE: 09/24/18 Discharge Plan Patient Name: LINDSAY JENKINS [facility] [facility] 1965 Planned Disposition: Anticipated Discharge Date: Discharge Date: Expected LOS: Initial Reviewer: [email or web address] Initial Review Date: 09/23/2018 Generated: 09/24/18 8:11 pm Comments DCP- Discharge Planning Updated by [email or web address]: Luna Ken on 09/23/18 5:[address] CM attempted to visit with patient. He is currently on ventilator an no family here at this time. CM will continue to follow and assist as needed with discharge planning / needs Last DP export: 09/23/18 5:05 Patient Name: LINDSAY JENKINS Page [id number] at 1911 All edits/amendments must be made on the electronic document DICTATION DATE: 09/24/181909 KENNEL MANAGER: MIRNA 09/24/181909 RPT#: [id number] DC DATE: STATUS: ADM IN [facility] [address] [place] [address] END OF REPORT
--- NOTE | ~2018-09-22 | MORECARE ---
CASE MANAGEMENT DISCHARGE SUMMARY PATIENT: LINDSAY JENKINS UNIT: [id number] ADM DATE: 09/22/18 AGE: 52 : 63 SEX: M ROOM/BED: D.2302 AUTHOR: ALISSA WYNNE PHYSICIAN: REFERRING PHYSICIAN: KELSY STROUD MD DATE OF SERVICE: 09/27/18 Discharge Plan Patient Name: LINDSAY JENKINS [facility] [facility] 1965 Planned Disposition: Anticipated Discharge Date: Discharge Date: Expected LOS: Initial Reviewer: [email or web address] Initial Review Date: 09/23/2018 Generated: 09/27/18 5:34 pm Comments DCP- Discharge Planning Updated by [email or web address]: Luna Ken on 09/27/18 3:[address] CM ATTEMPTED TO MEET WITH PATIENT STILL ON VENT. NO FAMILY AVAILABLE AT THIS TIME. DCP- Discharge Planning Updated by [email or web address]: Luna Ken on 09/23/18 5:[address] CM attempted to visit with patient. He is currently on ventilator an no family here at this time. CM will continue to follow and assist as needed with discharge planning / needs Last DP export: 09/24/18 6:11 Patient Name: LINDSAY JENKINS Page [phone] at 1634 All edits/amendments must be made on the electronic document DICTATION DATE: 09/27/18 163 MECHANICAL MAINTENANCE TECHNICIAN: MIRNA 09/27/18 1634 RPT#: [id number] DC DATE: STATUS: ADM IN [facility] [address] [place] [address] END OF REPORT
--- NOTE | ~2018-09-22 | MORECARE ---
CASE MANAGEMENT DISCHARGE SUMMARY PATIENT: LINDSAY JENKINS UNIT: [id number] ADM DATE: 09/22/18 AGE: 52 : 63 SEX: M ROOM/BED: D.2302 AUTHOR: ALISSA WYNNE PHYSICIAN: REFERRING PHYSICIAN: KELSY STROUD MD DATE OF SERVICE: 10/04/18 Discharge Plan Patient Name: LINDSAY JENKINS [facility] [facility] 1965 Planned Disposition: Anticipated Discharge Date: Discharge Date: 10/04/2018 Expected LOS: Initial Reviewer: [email or web address] Initial Review Date: 09/23/2018 Generated: 10/04/18 7:59 pm Comments DCP- Discharge Planning Updated by [email or web address]: Luna Ken on 09/27/18 3:[address] CM ATTEMPTED TO MEET WITH PATIENT STILL ON VENT. NO FAMILY AVAILABLE AT THIS TIME. DCP- Discharge Planning Updated by [email or web address]: Luna Ken on 09/23/18 5:[address] CM attempted to visit with patient. He is currently on ventilator an no family here at this time. CM will continue to follow and assist as needed with discharge planning / needs Last DP export: 09/27/18 3:34 Patient Name: LINDSAY JENKINS Page [phone] at 1859 All edits/amendments must be made on the electronic document DICTATION DATE: 10/04/181857 LOG PREPARER: MIRNA 10/04/181857 RPT#: [id number] DC DATE:10/04/18 STATUS: DIS IN [facility] [address] [place] [address] END OF REPORT
--- NOTE | ~2018-09-22 | CN ---
PATIENT NAME:LINDSAY JENKINS MEDICAL RECORD: [id number] : 63 LOCATION:[place].2302 ADMIT DATE: 09/22/18 ACCOUNT: [id number] CONSULTING PHYSICIAN: SHIMA SAMANIEGO MD REFERRING PHYSICIAN: KELSY STROUD MD DATE OF CONSULTATION: 09/23/2018 CARDIOLOGY CONSULT DIAGNOSES: 1. Atrial fibrillation with rapid ventricular response. 2. Hypotension. 3. Septic shock. 4. Respiratory failure. 5. Renal insufficiency. 6. COPD. HISTORY: This is a gentleman who presents with respiratory failure, septic shock, and COPD, who has gone into atrial fibrillation with heart rates in the 120s. He is on multiple pressors. He was previously on diltiazem, he is no longer on this. PHYSICAL EXAMINATION: GENERAL APPEARANCE: Well-nourished, well-developed, appears stated age. Level of distress, comfortable. PSYCHIATRIC: Mental status, alert, normal affect. Orientation, oriented to time, place and person. EYES: Lids and conjunctiva, noninjected. No discharge, no pallor. ENT: Lips, teeth, gums, normal dentition. Oropharynx, no cyanosis, no pallor. NECK: Carotid arteries, bilateral normal upstroke, no bruits, no thrills. JUGULAR VEINS: No jugular venous pressure or distention. CERVICAL LYMPH NODES: Nontender, nonenlarged. THYROID: Not enlarged. Nontender. No nodules. LUNGS: Respiratory effort, unlabored. CHEST: Normal curvature. No thoracic deformity. No chest wall tenderness. Percussion, resonant. Auscultation, clear. No wheezes, no rales, no rhonchi. CARDIOVASCULAR: Irregularly irregular with atrial fibrillation. EXTREMITIES: No cyanosis, no edema. Peripheral pulses, full and equal in all extremities, except as noted. No bruits appreciated. ABDOMEN: Soft, nondistended. Normal aorta. No bruit. Nontender. No masses. Liver, nontender, no hepatomegaly. Spleen, nontender, no splenomegaly. MUSCULOSKELETAL: No joint tenderness. No joint swelling. No erythema. NEUROLOGICAL: Normal gait, normal strength, normal tone. SKIN: Warm and dry. OVERALL IMPRESSION: Atrial fibrillation with rapid ventricular response in a gentleman with hypotension and shock. Really, the only thing we can use will be digoxin. We will use 0.5 times one to slow the rate. If he stabilizes, we may be able to try Cordarone IV to stabilize the rhythm; however, at this point, the digoxin alone should slow the rate. The hypotension will not resolve secondary to etiology of this is the septic shock and not the atrial fibrillation. TRANSINT:[id number] Voice Confirmation ID: [id number] DOCUMENT ID: [id number] CONSULT REPORT [id number] LINDSAY JENKINS JEFFREY MD at 1925 CC: [id number] DICTATION DATE: 09/23/18 1217 EXPLOSIVE ORDNANCE DISPOSAL SPECIALIST: 09/23/18 1235 ADM IN [facility] [address] [place] [id number]
--- NOTE | ~2018-09-22 | MORECARE ---
CASE MANAGEMENT DISCHARGE SUMMARY PATIENT: LINDSAY JENKINS UNIT: [id number] ADM DATE: 09/22/18 AGE: 52 : 63 SEX: M ROOM/BED: D.2302 AUTHOR: ALISSA WYNNE PHYSICIAN: REFERRING PHYSICIAN: KELSY STROUD MD DATE OF SERVICE: 09/23/18 Discharge Plan Patient Name: LINDSAY JENKINS [facility] [facility] 1965 Planned Disposition: Anticipated Discharge Date: Discharge Date: Expected LOS: Initial Reviewer: [email or web address] Initial Review Date: 09/23/2018 Generated: 09/23/18 7:05 pm Comments DCP- Discharge Planning Updated by [email or web address]: Luna Ken on 09/23/18 5:[address] CM attempted to visit with patient. He is currently on ventilator an no family here at this time. CM will continue to follow and assist as needed with discharge planning / needs Patient Name: LINDSAY JENKINS Page [id number] at 1805 All edits/amendments must be made on the electronic document DICTATION DATE: 09/23/181803 WATCH AND CLOCK MAKER AND REPAIRER: MIRNA 09/23/181803 RPT#: [id number] DC DATE: STATUS: ADM IN [facility] [address] [place] [address] END OF REPORT
--- NOTE | ~2018-09-22 | OP ---
PATIENT NAME: LINDSAY JENKINS MEDICAL RECORD: [id number] :63 LOCATION[facility] D.2302 ADMISSION DATE:09/22/18 SURGEON: CÉSAR SCHULER MD DATE OF OPERATION: 09/22/2018 PREOPERATIVE DIAGNOSES: 1. Refractory hypotension. 2. Ventilatory failure. 3. Status post code blue resuscitation. 4. Human immunodeficiency virus positive. POSTOPERATIVE DIAGNOSES: 1. Refractory hypotension. 2. Ventilatory failure. 3. Status post code blue resuscitation. 4. Human immunodeficiency virus positive. PROCEDURES: 1. Placement of right groin triple lumen central venous catheter. 2. Placement of right groin arterial line for hemodynamic monitoring. SURGEON: César Schuler MD PERIPHERAL EQUIPMENT OPERATOR: None. BLOOD LOSS: Minimal. ANESTHESIA: Local. I was asked to see this patient emergently. The consent could not be obtained as the patient is currently comatose. DESCRIPTION OF PROCEDURE: The right groin was sterilely prepped and draped. Percutaneously, I accessed the right common femoral vein in an antegrade fashion. A guidewire passed easily. A small skin jasen was accomplished. A vessel dilator was used to dilate the subcutaneous tract. A 16-cm triple lumen central venous catheter was inserted to the hub. It was sutured in place times 3. All lumens were flushed easily and aspirated dark, nonpulsatile blood. Attention was then turned to placement of the arterial line. The right common femoral artery was percutaneously accessed in a retrograde fashion. A guidewire passed easily. A small skin jasen was accomplished. A long Angiocath type catheter was inserted over the wire. It was attached to a flush transducer tubing. The arterial line was then sutured in place times 3. There was an excellent waveform on the monitor. Sterile dressings were applied. TRANSINT:[id number] Voice Confirmation ID: [id number] DOCUMENT ID: [id number] OPERATIVE REPORT [id number] LINDSAY JENKINS Sabine CÉSAR SCHULER MD at 1653 CC: [id number] DICTATION DATE: 09/25/18 1059 VESSEL OPERATOR: 09/25/18 1313 ADM IN [place] [id number] [place] [address]
--- NOTE | ~2018-09-22 | EC ---
PATIENT:LINDSAY JENKINS DATE OF SERVICE: 09/22/18 SEX: M MEDICAL RECORD: [id number] DATE OF : 63 LOCATION:[facility] D.230 AGE OF PATIENT: 52 ADMISSION DATE: 09/22/18 REFERRING PHYSICIAN: INTERPRETING PHYSICIAN: SHIMA ARAUJO MD ECHOCARDIOGRAM REPORT ECHO CHARGES 4 ECHO COMPLETE Date: 09/23/18 CLINICAL DIAGNOSIS: AFIB ECHOCARDIOGRAPHIC MEASUREMENTS (adult normal given) AC root (d.<3.7cm) 3.2 cm LV Septum d (<1.2 cm> 1.1 cm Valve Excursion 1.6 cm LV Septum (systole) 1.2 cm Left Atria (s.<4.0cm> 3.9 cm LVPW d(<1.2cm) 1.0 cm RV (d.<2.3cm) 2.3 cm LVPW (sytole) 1.1 cm LV diastole(<5.6CM) 5.1 cm MV E-F(>70mm/sec) cm LV systole 4.3 cm LVOT Diameter 1.8 cm MV exc.(>10mm) cm Est.ejection fraction (50-75%) % DOPPLER: LVIT cm/sec A 51 cm/sec E 46 cm/sec LA cm/sec RVSP 41.2 mmHg LVOT 118 cm/sec AOP1/2T m/s Asc. Ao 171 cm/sec RVOT 85 cm/sec RA cm/sec PA 85 cm/sec AV Gradient Peak 11.7 mmHg AV Mean 6.2 mmHg AV Area 1.9 cm MV Gradient Peak 5.0 mmHg MV Mean 2.2 mmHg MV Area cm COMMENTS: Signal Repairer: Radha ANGELESJOSE EDUARDO GENEVA C Programmer: 1 Dr. Araujo TAPE# PACS Pericardial Effusion N DATE OF SERVICE: 09/23/2018 FINDINGS: 1. Left ventricular chamber size is within normal limits. Left ventricular systolic function is normal. Overall ejection fraction is estimated at 50%. 2. Left atrium is within normal limits at 3.9 cm. Right atrium and right ventricular chamber sizes are mildly dilated. 3. Valvular structures have normal structure and motion. 4. Doppler interrogation reveals mild mitral regurgitation and mild tricuspid regurgitation. No other valvular insufficiency or stenosis. Pulmonary systolic ECHOCARDIOGRAM REPORT [id number] LINDSAY JENKINS pressure is estimated at 41 mmHg. 5. No evidence of pericardial effusion or left ventricular thrombus. TRANSINT:[id number] Voice Confirmation ID: [id number] DOCUMENT ID: [id number] SHIMA ARAUJO MD at 1925 CC: [id number] DICTATION DATE: 09/23/18 1544 SALES AGENT FOOD VENDING SERVICE: 09/23/18 1605 ADM IN [facility] [address] [place] [address]
[2018-09-22 17:16] LABS: HEMATOCRIT 42.4 % (42.0-54.0); HEMOGLOBIN 13.4 g/dL (13.5-17.5); MCH 28.3 pg (26.0-34.0); MCHC 31.6 g/dL (31.0-37.0); MCV 89.5 fL (80.0-100.0); MEAN PLATELET VOLUME 11.5 fL (7.4-10.4); PLATELET COUNT 146 10x3/uL (130-400); RBC 4.74 10x6/uL (4.20-6.10); WBC 31.6 10x3/uL (4.8-10.8)
[2018-09-22 18:21] LABS: LYMPHOCYTES 1 % (15-50); MONOCYTES 2 % (2-11); NEUTROPHILS 95 % (40-80); PLATELET ESTIMATE NORMAL; POIKILOCYTOSIS OCC; POLYCHROMASIA OCC; TARGET CELLS OCC
[2018-09-22 19:05] LABS: ALBUMIN 2.2 g/dL (3.4-5.0); ALKALINE PHOSPHATASE 76 U/L (46-116); ALT (SGPT) 364 U/L (10-68); BILIRUBIN - TOTAL 1.85 mg/dL (0.2-1.3); CARBON DIOXIDE 23.7 mmol/L (21.0-32.0); CHLORIDE - SERUM 103 mmol/L (98-107); CKMB 26.7 U/L (0.0-3.6); CREATININE - SERUM 2.2 mg/dL (0.6-1.3); MAGNESIUM - SERUM 1.6 mg/dL (1.8-2.4); PRO BNP 22435 pg/mL (0-125); PROTEIN - SERUM 5.1 g/dL (6.4-8.2); SODIUM 139 mmol/L (136-145); UREA NITROGEN 37 mg/dL (7-18); eGFR NON AFRICAN AMERICAN 33 mL/min (90-120)
[2018-09-22 19:14] LABS: CALC OSMOLALITY 290 mosm/kg (275-300); GLUCOSE 165 mg/dL (74-106)
[2018-09-22 19:15] LABS: CALCIUM 6.6 mg/dL (8.5-10.1)
[2018-09-22 19:17] LABS: TROPONIN-I 0.553 ng/mL (0.000-0.060)
[2018-09-23] VITALS (92 sets, daily range): BP systolic 49–159; BP diastolic 24–90; Ht 188 cm; Wt 93.7 kg
[2018-09-23 03:58] LABS: BASOPHILS 0 % (0-2); EOSINOPHILS 0 % (0-7); HEMATOCRIT 42.2 % (42.0-54.0); HEMOGLOBIN 12.8 g/dL (13.5-17.5); IMMATURE GRANULOCYTES 0.6 % (0-5); LYMPHOCYTES 5.4 % (15-50); MCH 28.2 pg (26.0-34.0); MCHC 30.3 g/dL (31.0-37.0); MEAN PLATELET VOLUME 11.2 fL (7.4-10.4); MONOCYTES 8.8 % (2-11); NEUTROPHILS 85.2 % (40-80); PLATELET COUNT 126 10x3/uL (130-400); RBC 4.54 10x6/uL (4.20-6.10); RDW 15.6 % (11.5-14.5)
[2018-09-23 04:22] LABS: ANION GAP 21.4 mmol/L (8-16); BILIRUBIN - TOTAL 2.26 mg/dL (0.2-1.3); CARBON DIOXIDE 18.6 mmol/L (21.0-32.0); CREATININE - SERUM 2.5 mg/dL (0.6-1.3); PROTEIN - SERUM 5.9 g/dL (6.4-8.2)
[2018-09-23 04:47] LABS: ALBUMIN 2.8 g/dL (3.4-5.0); CALCIUM 6.4 mg/dL (8.5-10.1)
[2018-09-24] VITALS (80 sets, daily range): BP systolic 72–114; BP diastolic 38–97
[2018-09-24 05:46] LABS: APTT 43.9 SECONDS (22.8-39.4); INR 3.89 (0.85-1.17); PROTIME 37.9 SECONDS (11.6-15.0)
[2018-09-24 06:03] LABS: ALBUMIN 2.5 g/dL (3.4-5.0); BILIRUBIN - TOTAL 2.21 mg/dL (0.2-1.3); MAGNESIUM - SERUM 1.4 mg/dL (1.8-2.4); PROTEIN - SERUM 4.6 g/dL (6.4-8.2)
[2018-09-24 06:32] LABS: BASOPHILS 0 % (0-2); EOSINOPHILS 0 % (0-7); HEMATOCRIT 34.2 % (42.0-54.0); HEMOGLOBIN 11.1 g/dL (13.5-17.5); IMMATURE GRANULOCYTES 0.5 % (0-5); LYMPHOCYTES 3.1 % (15-50); MCH 27.6 pg (26.0-34.0); MCHC 32.5 g/dL (31.0-37.0); MCV 85.1 fL (80.0-100.0); MEAN PLATELET VOLUME 11.6 fL (7.4-10.4); NEUTROPHILS 90.4 % (40-80); PLATELET COUNT 85 10x3/uL (130-400); RBC 4.02 10x6/uL (4.20-6.10); RDW 15.1 % (11.5-14.5); WBC 22.2 10x3/uL (4.8-10.8)
[2018-09-24 06:40] LABS: CARBON DIOXIDE 33.8 mmol/L (21.0-32.0); POTASSIUM - SERUM 3.8 mmol/L (3.5-5.1)
[2018-09-24 06:41] LABS: CALCIUM 5.6 mg/dL (8.5-10.1)
[2018-09-25] VITALS (23 sets, daily range): BP systolic 77–196; BP diastolic 51–97
[2018-09-25 06:25] LABS: BASOPHILS 0.1 % (0-2); EOSINOPHILS 0 % (0-7); HEMATOCRIT 31.1 % (42.0-54.0); HEMOGLOBIN 10.4 g/dL (13.5-17.5); IMMATURE GRANULOCYTES 0.6 % (0-5); LYMPHOCYTES 4.3 % (15-50); MCH 27.5 pg (26.0-34.0); MCHC 33.4 g/dL (31.0-37.0); MEAN PLATELET VOLUME 11.7 fL (7.4-10.4); MONOCYTES 6.1 % (2-11); NEUTROPHILS 88.9 % (40-80); RBC 3.78 10x6/uL (4.20-6.10); RDW 15.5 % (11.5-14.5); WBC 19.8 10x3/uL (4.8-10.8)
[2018-09-25 06:26] LABS: MCV 82.3 fL (80.0-100.0); PLATELET COUNT 63 10x3/uL (130-400)
[2018-09-25 07:02] LABS: ALBUMIN 2.5 g/dL (3.4-5.0); ANION GAP 12.5 mmol/L (8-16); BILIRUBIN - TOTAL 2.86 mg/dL (0.2-1.3); CARBON DIOXIDE 34.1 mmol/L (21.0-32.0); CREATININE - SERUM 3.4 mg/dL (0.6-1.3); MAGNESIUM - SERUM 1.4 mg/dL (1.8-2.4); POTASSIUM - SERUM 3.6 mmol/L (3.5-5.1); PROTEIN - SERUM 4.5 g/dL (6.4-8.2)
[2018-09-25 07:11] LABS: PHOSPHOROUS 3.1 mg/dL (2.5-4.9)
[2018-09-25 07:13] LABS: CALCIUM 6.1 mg/dL (8.5-10.1)
[2018-09-25 07:26] LABS: PLATELET ESTIMATE DECREASED
[2018-09-26] VITALS (43 sets, daily range): BP systolic 92–150; BP diastolic 60–110
[2018-09-26 06:31] LABS: BASOPHILS 0 % (0-2); EOSINOPHILS 0 % (0-7); HEMATOCRIT 32.4 % (42.0-54.0); HEMOGLOBIN 10.7 g/dL (13.5-17.5); IMMATURE GRANULOCYTES 0.5 % (0-5); LYMPHOCYTES 3.4 % (15-50); MCH 27.3 pg (26.0-34.0); MCV 82.7 fL (80.0-100.0); MONOCYTES 7.6 % (2-11); NEUTROPHILS 88.5 % (40-80); RBC 3.92 10x6/uL (4.20-6.10); RDW 15.8 % (11.5-14.5); WBC 25.9 10x3/uL (4.8-10.8)
[2018-09-26 06:32] LABS: PLATELET COUNT 49 10x3/uL (130-400)
[2018-09-26 06:46] LABS: FIBRINOGEN 312 mg/dL (239-481); INR 1.81 (0.85-1.17); PROTIME 20.7 SECONDS (11.6-15.0)
[2018-09-26 06:47] LABS: APTT 38.3 SECONDS (22.8-39.4)
[2018-09-26 07:47] LABS: % SATURATION 8 % (15-55); IRON 12 ug/dl (35-150); TOTAL IRON BIND CAPACITY 137 ug/dl (260-445); UNSAT IRON BIND CAPACITY 125 ug/dl (150-375)
[2018-09-26 07:49] LABS: ALBUMIN 2.7 g/dL (3.4-5.0); ANION GAP 13.3 mmol/L (8-16); BILIRUBIN - TOTAL 2.76 mg/dL (0.2-1.3); CARBON DIOXIDE 33.4 mmol/L (21.0-32.0); CREATININE - SERUM 3.5 mg/dL (0.6-1.3); POTASSIUM - SERUM 3.7 mmol/L (3.5-5.1); PROTEIN - SERUM 5.2 g/dL (6.4-8.2); VANCOMYCIN - RANDOM 18.7 ug/mL (10.0-20.0)
[2018-09-26 07:53] LABS: D-DIMER-QUANTITATIVE > 20.00 ug/mLFEU (0.20-0.54)
[2018-09-27] VITALS (51 sets, daily range): BP systolic 88–127; BP diastolic 64–90
[2018-09-27 05:16] LABS: ALBUMIN 2.6 g/dL (3.4-5.0); ANION GAP 12.1 mmol/L (8-16); BILIRUBIN - TOTAL 1.86 mg/dL (0.2-1.3); CALCIUM 7.3 mg/dL (8.5-10.1); CARBON DIOXIDE 34.1 mmol/L (21.0-32.0); CREATININE - SERUM 3.7 mg/dL (0.6-1.3); MAGNESIUM - SERUM 1.6 mg/dL (1.8-2.4); POTASSIUM - SERUM 4.2 mmol/L (3.5-5.1); PROTEIN - SERUM 5.4 g/dL (6.4-8.2); VANCOMYCIN - RANDOM 16.2 ug/mL (10.0-20.0)
[2018-09-27 05:24] LABS: BASOPHILS 0.1 % (0-2); EOSINOPHILS 0 % (0-7); HEMATOCRIT 33.6 % (42.0-54.0); HEMOGLOBIN 11.3 g/dL (13.5-17.5); IMMATURE GRANULOCYTES 0.6 % (0-5); MCH 27.6 pg (26.0-34.0); MCHC 33.6 g/dL (31.0-37.0); MCV 82.2 fL (80.0-100.0); MEAN PLATELET VOLUME 12.1 fL (7.4-10.4); MONOCYTES 10.1 % (2-11); NEUTROPHILS 86.2 % (40-80); PLATELET COUNT 51 10x3/uL (130-400); RBC 4.09 10x6/uL (4.20-6.10); RDW 15.7 % (11.5-14.5); WBC 28.6 10x3/uL (4.8-10.8)
[2018-09-27 05:33] LABS: PHOSPHOROUS 5.5 mg/dL (2.5-4.9)
[2018-09-28] VITALS (23 sets, daily range): BP systolic 106–129; BP diastolic 56–99
[2018-09-28 05:00] LABS: HEMATOCRIT 33.1 % (42.0-54.0); HEMOGLOBIN 11.1 g/dL (13.5-17.5); MCH 27.3 pg (26.0-34.0); MCHC 33.5 g/dL (31.0-37.0); MCV 81.5 fL (80.0-100.0); PLATELET COUNT 55 10x3/uL (130-400); RBC 4.06 10x6/uL (4.20-6.10); RDW 15.8 % (11.5-14.5); WBC 26.2 10x3/uL (4.8-10.8)
[2018-09-28 05:01] LABS: BASOPHILS 0.1 % (0-2); EOSINOPHILS 0 % (0-7); IMMATURE GRANULOCYTES 1.2 % (0-5); LYMPHOCYTES 10.1 % (15-50); MONOCYTES 9.3 % (2-11); NEUTROPHILS 79.3 % (40-80)
[2018-09-28 05:08] LABS: ALBUMIN 2.3 g/dL (3.4-5.0); ANION GAP 8.7 mmol/L (8-16); BILIRUBIN - TOTAL 1.37 mg/dL (0.2-1.3); CALCIUM 7.7 mg/dL (8.5-10.1); CARBON DIOXIDE 35.2 mmol/L (21.0-32.0); CREATININE - SERUM 3.6 mg/dL (0.6-1.3); MAGNESIUM - SERUM 1.7 mg/dL (1.8-2.4); PHOSPHOROUS 5.7 mg/dL (2.5-4.9); POTASSIUM - SERUM 3.9 mmol/L (3.5-5.1); PROTEIN - SERUM 5.2 g/dL (6.4-8.2); VANCOMYCIN - RANDOM 20.5 ug/mL (10.0-20.0)
[2018-09-29] VITALS (22 sets, daily range): BP systolic 95–130; BP diastolic 42–98
[2018-09-29 06:37] LABS: HEMATOCRIT 32.7 % (42.0-54.0); HEMOGLOBIN 11.2 g/dL (13.5-17.5); MCH 27.5 pg (26.0-34.0); MCHC 34.3 g/dL (31.0-37.0); MCV 80.1 fL (80.0-100.0); PLATELET COUNT 75 10x3/uL (130-400); RBC 4.08 10x6/uL (4.20-6.10); RDW 15.6 % (11.5-14.5); WBC 24.2 10x3/uL (4.8-10.8)
[2018-09-29 06:39] LABS: ALBUMIN 2.7 g/dL (3.4-5.0); BILIRUBIN - TOTAL 1.39 mg/dL (0.2-1.3); CALCIUM 8.6 mg/dL (8.5-10.1); CARBON DIOXIDE 32.8 mmol/L (21.0-32.0); CREATININE - SERUM 3.8 mg/dL (0.6-1.3); PHOSPHOROUS 5.8 mg/dL (2.5-4.9); POTASSIUM - SERUM 3.8 mmol/L (3.5-5.1); PROTEIN - SERUM 5.5 g/dL (6.4-8.2)
[2018-09-29 06:40] LABS: MAGNESIUM - SERUM 2.2 mg/dL (1.8-2.4)
[2018-09-29 07:09] LABS: LYMPHOCYTES 10 % (15-50); MONOCYTES 7 % (2-11); NEUTROPHILS 83 % (40-80); PLATELET ESTIMATE DECREASED; PLATELET MORPHOLOGY NO PLT CLUMPS SEEN
[2018-09-30] VITALS (24 sets, daily range): BP systolic 94–125; BP diastolic 74–103
[2018-09-30 05:17] LABS: BASOPHILS 0.1 % (0-2); EOSINOPHILS 0.5 % (0-7); HEMATOCRIT 32.9 % (42.0-54.0); HEMOGLOBIN 11.1 g/dL (13.5-17.5); IMMATURE GRANULOCYTES 1.8 % (0-5); LYMPHOCYTES 10.6 % (15-50); MCH 27.6 pg (26.0-34.0); MCHC 33.7 g/dL (31.0-37.0); MCV 81.8 fL (80.0-100.0); MONOCYTES 7.8 % (2-11); NEUTROPHILS 79.2 % (40-80); PLATELET COUNT 90 10x3/uL (130-400); RBC 4.02 10x6/uL (4.20-6.10); WBC 22.9 10x3/uL (4.8-10.8)
[2018-09-30 05:22] LABS: INR 1.77 (0.85-1.17)
[2018-09-30 05:23] LABS: ANION GAP 11.8 mmol/L (8-16); CARBON DIOXIDE 32.9 mmol/L (21.0-32.0); CREATININE - SERUM 3.9 mg/dL (0.6-1.3); MAGNESIUM - SERUM 2.3 mg/dL (1.8-2.4); POTASSIUM - SERUM 3.7 mmol/L (3.5-5.1)
[2018-09-30 16:35] LABS: CREATININE - URINE 65.3 mg/dL (30-125)
[2018-10-01] VITALS (24 sets, daily range): BP systolic 96–119; BP diastolic 67–86
[2018-10-01 00:39] LABS: APPEARANCE CLEAR (CLEAR); BILIRUBIN NEGATIVE (NEGATIVE); COLOR YELLOW (YELLOW); GLUCOSE NEGATIVE (NEGATIVE); KETONE NEGATIVE (NEGATIVE); NITRITE NEGATIVE (NEGATIVE); PROTEIN TRACE mg/dL (NEGATIVE); SPECIFIC GRAVITY 1.015 (1.005-1.020); UROBILINOGEN NORMAL (NORMAL)
[2018-10-01 00:41] LABS: BACTERIA FEW /hpf (NONE SEEN); EPITHELIAL CELLS 0-5 /hpf (0-5); HYALINE CAST 0-5 /lpf (NONE SEEN); RED CELLS - URINE 0-5 /hpf (0-5); WHITE CELLS - URINE 0-5 /hpf (0-5)
[2018-10-01 05:42] LABS: ALBUMIN 2.3 g/dL (3.4-5.0); ANION GAP 12.8 mmol/L (8-16); BILIRUBIN - TOTAL 1.19 mg/dL (0.2-1.3); CALCIUM 8.7 mg/dL (8.5-10.1); CARBON DIOXIDE 32.3 mmol/L (21.0-32.0); CREATININE - SERUM 4.2 mg/dL (0.6-1.3); POTASSIUM - SERUM 4.1 mmol/L (3.5-5.1); PROTEIN - SERUM 5.4 g/dL (6.4-8.2)
[2018-10-01 05:44] LABS: BASOPHILS 0 % (0-2); EOSINOPHILS 0.1 % (0-7); HEMATOCRIT 32.8 % (42.0-54.0); HEMOGLOBIN 10.6 g/dL (13.5-17.5); IMMATURE GRANULOCYTES 1.8 % (0-5); LYMPHOCYTES 9.5 % (15-50); MCH 27.1 pg (26.0-34.0); MCHC 32.3 g/dL (31.0-37.0); MCV 83.9 fL (80.0-100.0); MEAN PLATELET VOLUME 11.7 fL (7.4-10.4); MONOCYTES 6.4 % (2-11); NEUTROPHILS 82.2 % (40-80); PLATELET COUNT 101 10x3/uL (130-400); RBC 3.91 10x6/uL (4.20-6.10); RDW 17.3 % (11.5-14.5); WBC 20.7 10x3/uL (4.8-10.8)
[2018-10-02] VITALS (24 sets, daily range): BP systolic 88–116; BP diastolic 72–91
[2018-10-02 05:30] LABS: BASOPHILS 0 % (0-2); EOSINOPHILS 0.5 % (0-7); HEMATOCRIT 32.1 % (42.0-54.0); HEMOGLOBIN 10.8 g/dL (13.5-17.5); IMMATURE GRANULOCYTES 0.9 % (0-5); LYMPHOCYTES 10.1 % (15-50); MCH 27.7 pg (26.0-34.0); MCHC 33.6 g/dL (31.0-37.0); MCV 82.3 fL (80.0-100.0); MEAN PLATELET VOLUME 10.9 fL (7.4-10.4); MONOCYTES 4.2 % (2-11); NEUTROPHILS 84.3 % (40-80); PLATELET COUNT 94 10x3/uL (130-400); RDW 17.9 % (11.5-14.5); WBC 21.4 10x3/uL (4.8-10.8)
[2018-10-02 05:43] LABS: ALBUMIN 2.5 g/dL (3.4-5.0); ANION GAP 11.1 mmol/L (8-16); BILIRUBIN - TOTAL 1.5 mg/dL (0.2-1.3); CALCIUM 8.9 mg/dL (8.5-10.1); CARBON DIOXIDE 33.1 mmol/L (21.0-32.0); CREATININE - SERUM 3.4 mg/dL (0.6-1.3); POTASSIUM - SERUM 4.2 mmol/L (3.5-5.1); PROTEIN - SERUM 5.7 g/dL (6.4-8.2)
[2018-10-03] VITALS (24 sets, daily range): BP systolic 68–105; BP diastolic 64–88
[2018-10-03 06:23] LABS: BASOPHILS 0 % (0-2); EOSINOPHILS 0.7 % (0-7); HEMATOCRIT 34.4 % (42.0-54.0); HEMOGLOBIN 11.5 g/dL (13.5-17.5); IMMATURE GRANULOCYTES 0.8 % (0-5); LYMPHOCYTES 9.6 % (15-50); MCH 27.7 pg (26.0-34.0); MCHC 33.4 g/dL (31.0-37.0); MCV 82.9 fL (80.0-100.0); MEAN PLATELET VOLUME 11.3 fL (7.4-10.4); MONOCYTES 3.7 % (2-11); NEUTROPHILS 85.2 % (40-80); PLATELET COUNT 115 10x3/uL (130-400); RBC 4.15 10x6/uL (4.20-6.10); RDW 18.6 % (11.5-14.5); WBC 23.3 10x3/uL (4.8-10.8)
[2018-10-03 06:57] LABS: ALBUMIN 2.4 g/dL (3.4-5.0); BILIRUBIN - TOTAL 1.75 mg/dL (0.2-1.3); CALCIUM 8.6 mg/dL (8.5-10.1); CARBON DIOXIDE 31.1 mmol/L (21.0-32.0); CREATININE - SERUM 2.8 mg/dL (0.6-1.3); POTASSIUM - SERUM 4.1 mmol/L (3.5-5.1); PROTEIN - SERUM 5.6 g/dL (6.4-8.2)
[2018-10-03 08:20] LABS: HEPATITIS C ANTIBODY <0.1 S/CO RAT (0.0-0.9)
[2018-10-04] VITALS (14 sets, daily range): BP systolic 78–112; BP diastolic 51–85
[2018-10-04 05:23] LABS: BASOPHILS 0 % (0-2); EOSINOPHILS 0.6 % (0-7); HEMATOCRIT 32.1 % (42.0-54.0); HEMOGLOBIN 10.6 g/dL (13.5-17.5); IMMATURE GRANULOCYTES 0.7 % (0-5); LYMPHOCYTES 8.9 % (15-50); MCH 27.2 pg (26.0-34.0); MCV 82.3 fL (80.0-100.0); MEAN PLATELET VOLUME 11.8 fL (7.4-10.4); MONOCYTES 3.2 % (2-11); NEUTROPHILS 86.6 % (40-80); PLATELET COUNT 115 10x3/uL (130-400); RDW 19.2 % (11.5-14.5); WBC 20.1 10x3/uL (4.8-10.8)
[2018-10-04 05:29] LABS: ANION GAP 11.7 mmol/L (8-16); CALCIUM 8.7 mg/dL (8.5-10.1); CARBON DIOXIDE 32.2 mmol/L (21.0-32.0); POTASSIUM - SERUM 3.9 mmol/L (3.5-5.1)
[2018-10-04 05:54] LABS: ALBUMIN 2.4 g/dL (3.4-5.0); BILIRUBIN - TOTAL 1.5 mg/dL (0.2-1.3); PROTEIN - SERUM 5.5 g/dL (6.4-8.2)
[2018-10-05 19:08] LABS: AEROBE ID Final report (())
== END 2018-10-04 12:34 | DRG 870 ==
LOC: D.ICU 09:02
PROVIDERS: Family Medicine; Internal Medicine Nephrology; Internal Medicine Pulmonary Disease; Student in an Organized Health Care Education/Training Program
PROC: 5A1955Z Respiratory Ventilation, Greater than 96 Consecutive Hours (ICD-10-PCS; principal; 2018-09-22)
PROC: 06HY33Z Insertion of Infusion Device into Lower Vein, Percutaneous Approach (ICD-10-PCS; 2018-09-22)
PROC: 04HY32Z Insertion of Monitoring Device into Lower Artery, Percutaneous Approach (ICD-10-PCS; 2018-09-22)
PROC: 05HY33Z Insertion of Infusion Device into Upper Vein, Percutaneous Approach (ICD-10-PCS; 2018-09-25)
PROC: 05HM33Z Insertion of Infusion Device into Right Internal Jugular Vein, Percutaneous Approach (ICD-10-PCS; 2018-10-01)
DX: A41.9 Sepsis, unspecified organism (principal); J15.6 Pneumonia due to other Gram-negative bacteria; J96.21 Acute and chronic respiratory failure with hypoxia; J96.22 Acute and chronic respiratory failure with hypercapnia; R65.21 Severe sepsis with septic shock; N17.0 Acute kidney failure with tubular necrosis; K72.00 Acute and subacute hepatic failure without coma; E46 Unspecified protein-calorie malnutrition; E87.2 Acidosis; J44.1 Chronic obstructive pulmonary disease with (acute) exacerbation; B44.9 Aspergillosis, unspecified; D64.9 Anemia, unspecified; I25.10 Atherosclerotic heart disease of native coronary artery without angina pectoris; G40.909 Epilepsy, unspecified, not intractable, without status epilepticus; I27.20 Pulmonary hypertension, unspecified; Z66 Do not resuscitate; I48.91 Unspecified atrial fibrillation; E83.39 Other disorders of phosphorus metabolism; E83.42 Hypomagnesemia; I95.89 Other hypotension; D50.9 Iron deficiency anemia, unspecified; Z21 Asymptomatic human immunodeficiency virus [HIV] infection status; D69.6 Thrombocytopenia, unspecified; R91.8 Other nonspecific abnormal finding of lung field; I10 Essential (primary) hypertension; R91.1 Solitary pulmonary nodule